=== PATIENT | female | born 1970 | race Caucasian/White ===

== ENCOUNTER 2017-07-16 17:47 | Emergency (ER) | payer OTHER ==
[~2017-07-16] VITALS: Ht 142.2 cm; Wt 44.5 kg
[~2017-07-16 17:47] MED LIST: ALPR-475 PO; AMLO5TAB2 PO; AMOX1TAB64 PO; CEFD300C37; DOCU-131 PO; FLUO10CA13 PO; IPRA4AER INH; LOSA50TA2 PO; METH500T7 PO; OMEP-110 PO; ONDA4TAB13 PO; OXYC-302 PO; PRED5TAB PO
[2017-07-16] MEDS ORDERED: SODIUM CHLORIDE FLUSH 10ML SYR IVF ONE (18:30)
[2017-07-16] MEDS ORDERED: PROCHLORPERAZINE 5 MG/ML, 2ML IVPush ONE (18:30)
[2017-07-16] MEDS ORDERED: HALOPERIDOL 5 MG/ML IM ONE (18:30)
[2017-07-16] MEDS ORDERED: KETOROLAC 30 MG/1 ML IVPush ONE (18:30)
[2017-07-16] MEDS ORDERED: KETOROLAC 30 MG/1 ML ONE (18:43)
[2017-07-16] MEDS ORDERED: PROCHLORPERAZINE 5 MG/ML, 2ML ONE (18:43)
[2017-07-16] MEDS ORDERED: HALOPERIDOL 5 MG/ML ONE (18:44)
[2017-07-16 19:30] VITALS: BP 137/79
== END 2017-07-16 19:32 | disposition home or self-care (01) ==
LOC: ED 18:00
DX: G43.001 Migraine without aura, not intractable, with status migrainosus (principal); D49.6 Neoplasm of unspecified behavior of brain; F17.200 Nicotine dependence, unspecified, uncomplicated; Z88.1 Allergy status to other antibiotic agents
CPT/HCPCS: 96372; 96374; 96375; 99284; J0780; J1630; J1885

== ENCOUNTER 2017-10-10 17:55 | Emergency (ER) | payer OTHER ==
[~2017-10-10] VITALS: Ht 142.2 cm; Wt 52.0 kg
[2017-10-10 18:01] VITALS: BP 168/118
[2017-10-10] MEDS ORDERED: METOCLOPRAMIDE 5 MG/ML, 2ML ONE (18:41)
[2017-10-10] MEDS ORDERED: KETOROLAC 30 MG/1 ML ONE (18:41)
[2017-10-10] MEDS ORDERED: KETOROLAC 30 MG/1 ML IVPush ONE (19:00)
[2017-10-10] MEDS ORDERED: METOCLOPRAMIDE 5 MG/ML, 2ML IVPush ONE (19:00)
== END 2017-10-10 20:45 | disposition home or self-care (01) ==
LOC: ED 18:40
DX: G43.109 Migraine with aura, not intractable, without status migrainosus (principal); I10 Essential (primary) hypertension; F17.200 Nicotine dependence, unspecified, uncomplicated
CPT/HCPCS: 96374; 96375; 99284; J1885; J2765